=== PATIENT | male | born 1995 | race Two or more races ===

== ENCOUNTER → 2020-03-12 | Outpatient (CLI) | payer OTHER | END | disposition home or self-care (01) | LOC: LAB 13:19 | PROVIDERS: ATTEND Nurse Practitioner Family | DX: U07.1 COVID-19 (principal) | CPT/HCPCS: C9803; U0003 ==

== ENCOUNTER → 2022-07-08 | Outpatient (CLI) | payer OTHER ==
[2022-07-08 12:12] LABS: Basophils # (auto) 0.1 10 ^3/uL (0-0.2); Eosinophils # (auto) 0.2 10 ^3/uL (0-0.8)
[2022-07-08 12:14] LABS: Basophils % (auto) 1.2 % (0.0-2.0); Eosinophils % (auto) 2.1 % (0.0-7.0); Hematocrit 50.1 % (41.0-53.0); Hemoglobin 17.2 g/dL (13.5-17.5); Lymphocytes # (auto) 2.6 10 ^3/uL (0.4-5.4); Mean Corpuscular Hemoglobin 27.3 pg (28.0-32.0); Mean Corpuscular Hgb Conc. 34.3 g/dL (32.0-36.0); Mean Corpuscular Volume 79.7 fL (80.0-100.0); Monocytes # (auto) 0.6 10 ^3/uL (0-1.3); Monocytes % (auto) 7.4 % (0.0-12.0); Neutrophils % (auto) 58.3 % (37.0-80.0); Nucleated Red Blood Cells % 0.7 %; Red Blood Cells 6.29 10^6/uL (4.5-5.90); Red Cell Distribution Width 14.3 % (11.8-14.3); White Blood Cell 8.5 10^3/uL (4.4-10.8)
[2022-07-08 12:35] LABS: Urine Bacteria NONE SEEN /hpf (None Seen); Urine Blood Negative /uL (Negative); Urine Specific Gravity 1.018 (1.001-1.035); Urine WBC <1 /hpf (0 - 3)
[2022-07-08 12:51] LABS: Albumin 3.7 g/dL (3.4-5.0); Calcium 9.3 mg/dL (8.5-10.1); Magnesium 1.8 mg/dL (1.6-2.6); Potassium 3.8 mmol/L (3.5-5.1)
[2022-07-08 12:57] LABS: BUN/Creatinine Ratio 10.7 (10.0-20.0); Bilirubin, Total 0.7 mg/dL (0.2-1.0); Total Protein 7.9 g/dL (6.4-8.2)
== END | disposition home or self-care (01) ==
LOC: LAB 11:54
PROVIDERS: ATTEND Internal Medicine
DX: E61.2 Magnesium deficiency (principal); E79.0 Hyperuricemia without signs of inflammatory arthritis and tophaceous disease; R94.6 Abnormal results of thyroid function studies; E55.9 Vitamin D deficiency, unspecified; R82.79 Other abnormal findings on microbiological examination of urine; R82.998 Other abnormal findings in urine; D51.9 Vitamin B12 deficiency anemia, unspecified; R82.90 Unspecified abnormal findings in urine; E78.49 Other hyperlipidemia; R68.89 Other general symptoms and signs; R73.09 Other abnormal glucose
CPT/HCPCS: 36415; 80053; 80061; 81001; 82043; 82306; 82607; 83036; 83735; 84443; 84550; 85025; 87086

== ENCOUNTER 2023-09-15 09:30 | Emergency (ER) | payer BC ==
[~2023-09-15] VITALS: Ht 170.2 cm; Wt 127.2 kg
[2023-09-15 09:40] VITALS: PULSE 112; RESP 10; TEMP 98.1; O2SAT 97
[2023-09-15] MEDS: HYDROcodone-ACET 10/325MG TAB PO ONE (09:46)
[2023-09-15] MEDS ORDERED: HYDR-4902 PO (11:15)
[2023-09-15] MEDS: HYDROcodone-ACET 5/325MG TAB PO ONE (11:58)
[2023-09-15 12:48] VITALS: BP 136/82; PULSE 76; RESP 16; O2SAT 98
== END 2023-09-15 12:48 | disposition home or self-care (01) ==
LOC: ER 09:30 → EDBD 09:30 → EEVIPCON 09:30 → ER 12:48
DX: S52.611A Displaced fracture of right ulna styloid process, initial encounter for closed fracture (principal); J45.909 Unspecified asthma, uncomplicated; Z79.891 Long term (current) use of opiate analgesic; V49.9XXA Car occupant (driver) (passenger) injured in unspecified traffic accident, initial encounter; Y93.89 Activity, other specified; Y92.89 Other specified places as the place of occurrence of the external cause; Y99.8 Other external cause status
CPT/HCPCS: 71045; 73090; 73110; 73200

== ENCOUNTER → 2024-05-08 | Outpatient (CLI) | payer BC ==
[~2024-05-08] MED LIST: HYDR-4902 PO
[2024-05-08 10:49] LABS: Urine Bacteria None Seen /hpf (None Seen)
[2024-05-08 11:20] LABS: Basophils # (auto) 0 10 ^3/uL (0-0.2); Eosinophils # (auto) 0.2 10 ^3/uL (0-0.8); Eosinophils % (auto) 1.9 % (0.0-7.0)
[2024-05-08 11:23] LABS: Alkaline Phosphatase 105 U/L (46-116); Basophils % (auto) 0.5 % (0.0-2.0); Hematocrit 49.1 % (41.0-53.0); Hemoglobin 16.5 g/dL (13.5-17.5); Lymphocytes # (auto) 2.1 10 ^3/uL (0.4-5.4); Lymphocytes % (auto) 23.2 % (10.0-50.0); Mean Corpuscular Hemoglobin 27.3 pg (28.0-32.0); Mean Corpuscular Hgb Conc. 33.6 g/dL (32.0-36.0); Mean Corpuscular Volume 81.4 fL (80.0-100.0); Monocytes # (auto) 0.6 10 ^3/uL (0-1.3); Monocytes % (auto) 6.8 % (0.0-12.0); Neutrophils % (auto) 67.6 % (37.0-80.0); Nucleated Red Blood Cells % 0.1 %; Platelet Count (auto) 260 10^3/uL (140-450); Red Blood Cells 6.04 10^6/uL (4.5-5.90); Triglycerides 129 mg/dL (< 150)
[2024-05-08 11:24] LABS: Albumin 4.6 g/dL (3.2-4.8); Anion Gap 9 (5-15); Aspartate Aminotransferase 26 U/L (13-40); Bilirubin, Total 0.9 mg/dL (0.2-1.0); Blood Urea Nitrogen 11 mg/dL (9-23); Calcium 9.4 mg/dL (8.7-10.4); Carbon Dioxide 28 mmol/L (20-31); Chloride 98 mmol/L (98-107); Cholesterol 156 mg/dL (< 200); HDL Cholesterol 42 mg/dL (40-59); Magnesium 1.8 mg/dL (1.6-2.6); Potassium 3.9 mmol/L (3.5-5.1); Total Protein 7.5 g/dL (5.7-8.2)
[2024-05-08 11:26] LABS: Urine Blood Negative /uL (Negative); Urine Clarity Clear (Clear); Urine Color Light-Yellow (Yellow); Urine Protein, UAD Negative (Negative); Urine Specific Gravity 1.008 (1.001-1.035); Urine Squamous Epithelial Cell FEW /hpf (<5); Urine Urobilinogen Normal (Negative)
[2024-05-08 11:27] LABS: Folate (Folic Acid) 16.08 ng/mL (>5.38)
[2024-05-08 11:28] LABS: T3 Total 1.77 ng/mL (0.60-1.81)
[2024-05-08 11:32] LABS: Alanine Aminotransferase 63 U/L (7-40); Glucose 223 mg/dL (74-106); LDL Cholesterol 103 mg/dL (< 100); Sodium 135 mmol/L (136-145)
[2024-05-08 11:56] LABS: Uric Acid 5.4 mg/dL (3.7-9.2)
== END | disposition home or self-care (01) ==
LOC: LAB 10:33
PROVIDERS: ATTEND Internal Medicine
DX: E61.2 Magnesium deficiency (principal); E55.9 Vitamin D deficiency, unspecified; E07.9 Disorder of thyroid, unspecified; E79.0 Hyperuricemia without signs of inflammatory arthritis and tophaceous disease; E78.49 Other hyperlipidemia; D51.9 Vitamin B12 deficiency anemia, unspecified; R73.09 Other abnormal glucose; R94.6 Abnormal results of thyroid function studies; R68.89 Other general symptoms and signs; R82.998 Other abnormal findings in urine; R82.90 Unspecified abnormal findings in urine
CPT/HCPCS: 36415; 80053; 80061; 81001; 82306; 82607; 82746; 83036; 83735; 84443; 84480; 84550; 85025; 87086

== ENCOUNTER 2024-10-01 08:52 | Outpatient (CLI) | payer BC ==
[2024-10-01 10:20] LABS: Hemoglobin 17.2 g/dL (13.5-17.5)
[2024-10-01 10:25] LABS: Hematocrit 49.3 % (41.0-53.0); Mean Corpuscular Hemoglobin 28.2 pg (28.0-32.0); Mean Corpuscular Volume 80.5 fL (80.0-100.0); Nucleated Red Blood Cells % 0.3 %
[2024-10-01 10:57] LABS: Albumin 4.4 g/dL (3.2-4.8); Alkaline Phosphatase 93 U/L (46-116); Anion Gap 11 (5-15); BUN/Creatinine Ratio 12.2 (10.0-20.0); Blood Urea Nitrogen 11 mg/dL (9-23); Calcium 9.9 mg/dL (8.7-10.4); Carbon Dioxide 25 mmol/L (20-31); Chloride 102 mmol/L (98-107); Potassium 4.0 mmol/L (3.5-5.1); Sodium 138 mmol/L (136-145); Total Protein 7.3 g/dL (5.7-8.2); Triglycerides 123 mg/dL (< 150)
[2024-10-01 10:58] LABS: Alanine Aminotransferase 53 U/L (7-40); Bilirubin, Total 0.8 mg/dL (0.2-1.0); Cholesterol 164 mg/dL (< 200); Glucose 164 mg/dL (74-106); HDL Cholesterol 39 mg/dL (40-59)
[2024-10-01 11:04] LABS: Urine Protein, UAD Negative (Negative)
[2024-10-01 11:57] LABS: Uric Acid 6.8 mg/dL (3.7-9.2)
== END 2024-10-01 17:00 | disposition home or self-care (01) ==
LOC: LAB 08:52
PROVIDERS: ATTEND Internal Medicine
DX: E78.49 Other hyperlipidemia (principal); E61.2 Magnesium deficiency; E79.0 Hyperuricemia without signs of inflammatory arthritis and tophaceous disease; E55.9 Vitamin D deficiency, unspecified; D51.9 Vitamin B12 deficiency anemia, unspecified; R82.79 Other abnormal findings on microbiological examination of urine; R82.90 Unspecified abnormal findings in urine; R82.998 Other abnormal findings in urine; R94.6 Abnormal results of thyroid function studies; R68.89 Other general symptoms and signs; R73.09 Other abnormal glucose
CPT/HCPCS: 36415; 80053; 80061; 81001; 82043; 82306; 82607; 82746; 83036; 84443; 84550; 85025; 87086